=== PATIENT | female | born 1940 | race Caucasian/White ===

== ENCOUNTER 2023-11-06 10:13 | Outpatient (REF) | payer MEDICARE, SELFPAY ==
[2023-11-06 12:00] LABS: Vitamin B12 > 2000 pg/mL (200-900)
== END 2023-11-06 10:14 | disposition home or self-care (01) ==
LOC: HO.LAB 10:13
PROVIDERS: PCP Nurse Practitioner; Visit Provider Psychiatry & Neurology Neurology
DX: G20.C Parkinsonism, unspecified (principal)
CPT/HCPCS: 36415; 82607

== ENCOUNTER 2024-12-02 08:50 | Outpatient (AMB) | payer MEDICARE, SELFPAY ==
--- NOTE | 2024-12-02 09:16 | MHC.OFFVIS ---
Intake Visit Reasons: 6 Months Allergies Iodinated Contrast Media (Iodinated Contrast Media - IV Dye) Allergy (Unknown, Unverified 12/24/19 14:59) UNKNOWN Medication List - Last Reconciled 12/02/24 by Rivas Martin MD carbidopa-levodopa 25-100 mg 1 tab PO TID duloxetine 20 mg PO DAILY losartan 100 mg PO DAILY quetiapine 25 mg PO BEDTIME HPI Comments Details: 83 years old woman with clinical features suggestive of dementia with Lewy body disease and parkinsonism, and generalized body pain. She is present with no sginificant issue now but had problem with hallucinations. She has experienced visual hallucinations leading to significant distress, prompting inclusion of quetiapine at night in her medication plan. Since this adjustment, there have been no further hallucination episodes. The patient also has Parkinson's Disease controlled with carbidopa/levodopa three times daily, with variability in her symptom management observed. Additionally, she experiences challenges with her sleep patterns, identifying as not a morning person, impacting her daily routine. There are notable mood fluctuations, experiencing both positive and slightly more irritable or vergara periods. [facility] Medical History (Updated 12/02/24 @ 09:26 by Rivas Martin MD) Dyskinesia Fibromyalgia Dementia with Lewy bodies Review of Systems Const Details: - Neurological: Reports hallucinations; denies further episodes post medication adjustment. - Sleep: Reports difficulty with waking early. - Mood: Reports fluctuations between good and irritable moods. - Medications: Reports taking carbidopa/levodopa three times daily and quetiapine at night. Physical Exam Neuro Other: Mental Status: Alert and oriented to person, place, and time. Normal attention. Normal spontaneous speech, fluency, and comprehension. No obvious issues with mood and memory. Affect is appropriate. Cranial Nerves: CN II: Visual [place] full to confrontation, visual acuity intact. CN III, IV, : Pupils equal, round, reactive to light and accommodation. Extraocular movements are normal. CN V: Facial sensation is normal. CN VII: Facial movements symmetrical. CN VIII: Hearing intact to bedside conversation is normal. CN IX, X: Palate elevates symmetrically. CN XI: Shoulder shrug and head turn symmetrical. CN XII: Tongue midline without atrophy or fasciculations. Extrapyramidal: Full facial expressions and blinking. No rigidity. Movements are appropriate with no tremor or abnormality. Speech: Normal; no dysarthria or tremor. Assessment & Plan Assessment & Plan (1) Parkinsonism: Code(s): G20.C - Parkinsonism, unspecified Category: Medical Qualifiers: Parkinsonism type: unspecified Qualified Code(s): G20.C - Parkinsonism, unspecified Plan: During the visit, we discussed the patient's ongoing management plan, focusing on her hallucinations and Parkinson's Disease. The addition of quetiapine has prevented further hallucination episodes, and she is compliant with her carbidopa/levodopa regimen for Parkinson's. We addressed her mood fluctuations, supported by duloxetine and regular exercise, with acknowledgment of the associated challenges. Her sleep disturbances require monitoring. We reviewed the effectiveness of current therapies, agreeing to continue as currently prescribed, with follow-up scheduled as needed to reassess her regimen's adequacy and address any new concerns. (2) Fibromyalgia: Code(s): M79.7 - Fibromyalgia Category: Medical (3) Dementia with Lewy bodies: Code(s): G31.83 - Neurocognitive disorder with Lewy bodies; F02.80 - Dementia in other diseases classified elsewhere, unspecified severity, without behavioral disturbance, psychotic disturbance, mood disturbance, and anxiety Category: Medical Plan Impression: a: Moderate demetnia with Parkinsonism, probably from Lewy body type pathology b: Behvaioral symtposm from above c: Body pain better with Duloxetine Rec: a: Carbidopa/levodopa 25/100 TID b: Duloxetine 20mg one a day c: Quetiapine 25mg one at night Medications: New carbidopa-levodopa 25-100 mg 1 tab PO TID 270 tabs 1RF duloxetine 20 mg PO DAILY 90 caps 1RF quetiapine 25 mg PO BEDTIME 90 tabs 1RF Coding Level of Care Code Est Pt Level 5 (93839) Diagnoses Parkinsonism, unspecified Parkinsonism type G20.C Parkinsonism type: unspecified Fibromyalgia M79.7 Dementia with Lewy bodies G31.83; F02.80
--- OUTSIDE RECORDS SUMMARY | 2024-12-02 09:16 | XMS_ITS | Clinical Summary ---
Author Organization Patient Business Ser [facility] Address [address] [place] [address] Care Team Providers Care Radiographic Technologist Name Role Phone LgRebecca Primary Care Provider [phone] Allergies Active Allergy Reactions Criticality Noted Date Comments Iodinated Contrast Media 04/19/2005 ? Lisinopril Cough 01/02/2022 Medications aspirin 81 mg EC tablet 1 TABLET DAILY Active cholecalciferol (VITAMIN D-3) 25 mcg (1,000 unit) capsule Take 1,000 Units by mouth daily. Active cyanocobalamin (VITAMIN B-12) 1,000 mcg tablet Take 1,000 mcg by mouth daily. Active cycloSPORINE (Restasis MultiDose) 0.05 % drops INSTILL 1 DROP INTO BOTH EYES EVERY 12 HOURS 4 Active ijkzrwtu-jii-ttwr -FA-vit K-lut (Centrum Silver Women) 8 mg iron-400 mcg-50 mcg tablet Take by mouth daily. Active carbidopa-levodop a (SINEMET) 25-100 mg per tablet TAKE 1 TABLET BY MOUTH THREE TIMES A DAY FOR 90 DAYS 4 Active DULoxetine (CYMBALTA) [address] capsule Take 1 capsule (20 mg total) by mouth 1 (one) time each day. for 90 days 4 Active losartan (COZAAR) 100 mg tabletIndications :Essential hypertension Take 1 tablet (100 mg total) by mouth 1 (one) time each day. 90 each 1 5 Active Active Problems Problem Noted Date Diagnosed Date Dementia with parkinsonism (CMS/HCC V24, CMS/HCC V28) 11/12/2023 Overview (01/17/2024): Seen by Neurology in Started Sinemet Essential hypertension 01/02/2022 Osteopenia 02/08/2014 Chest pain 11/06/2010 Overview (01/17/2024): Had negative coronary cath 1996 [facility]- only had 30% LAD obstruction Pure hypercholesterolemia 10/31/2010 Encounters Date Type Department Care Team Description 10/08/2024 Telephone Internal Medicine - [facility] [address] [facility] [address] Rebecca Castanon DO from Last 3 Months Immunizations Name Administration Dates Next Due Influenza trivalent, 0.5mL, preservative free (Fluarix; FluLaval; Fluzone) ages 6mo and older (Afluria) 3 years and older 01/02/2009,01/07/2008,02/04/2007 Moderna SARS-CoV-2 COVID-19, mRNA, LNP-S, preservative free 04/13/2021,06/15/2020,05/18/2020 Pneumococcal conjugate 13 va lent (Prevnar 13, PCV13) 2mo and older 12/15/2015 Pneumococcal conjugate 20 va lent (Prevnar 20, PCV 20) 2mo and older 02/20/2023 Pneumococcal polysaccharide 23 valent (Pneumovax 23) 2yo and older 03/02/2008 Td Tetanus diptheria (Tdvax) 7yo and older 11/24,04/19/2005 Tdap Tetanus diptheria acell ular pertussis (Boostrix; Adacel) 7yo and older 09/15/2015 Surgical History Surgery Date Site/Laterality Comments COLONOSCOPY 12/11/2008 PROCEDURE: [place] COLONOSCOPY FLX DX W/COLLJ SPEC WHEN PFRMD; COMMENT: Normal Medical History Medical History Date Comments Esophageal reflux DX:Esophageal reflux Anxiety state, unspecified 04/08/2000 DX:An xiety state, unspecified; COMMENT: Quit job due to stress; has not worked since. Coronary atherosclerosis of unspecified type of vessel, citizen [place] or graft 04/19/2005 DX:Coronary atherosclerosis of unspecified type of vessel, citizen [place] or graft Special screening for malign ant neoplasms, colon 01/10/2009 DX:Special screening for mal ignant neoplasms, colon Chest pain 11/06/2010 DX:Chest pain Osteopenia 02/08/2014 DX:Osteopenia Benign paroxysmal vertigo of both ears DX:Benign paroxysmal vertigo of both ears Family History Medical History Relation Name Comments No Known Problems Brother 1 Diabetes Brother 2 Stroke Daughter Heart attack Father Other: Other Mother age 49 of blood clot Diabetes Sister x4 1 deceasaed No Known Problems Son Relation Name Status Comments Brother 1 Alive x2; HTN, DMII Brother 2 Daughter Alive Father (Age 74) MD - smoke r/emphysema Mother (Age 49) DVT - jasmina eled to heart Sister x4 1 deceasaed Alive x4; thyroid Son Alive Social History Tobacco Use Types Packs/Day Years Used Date Smoking Tobacco: Former Cigarettes Smokeless Tobacco: Never Tobacco Cessation:Counseling Given: Not Answered Alcohol Use Standard Drinks/Week Comments Yes 0 (1 standard drink = 0.6 oz pur e alcohol) Housing Instability Answer Date Recorde d Are you worried that in the next 2 months you may not have stable housing? No 02/27/2024 Food Access & Nutrition Answer Date Rec orded Do you have access to a vari ety of food including fruits and vegetables? Yes 02/27/2024 Access to Healthcare Answer Date Record ed Within the last 3 months, ho aristeo many times did you visit the emergency department for your medical care? 0 02/27/2024 Health Literacy Answer Date Recorded How often do you need to hav e someone help you when you read instructions, pamphlets, or other written material from your doctor or pharmacy? Rarely 02/27/2024 Caregiver: How often do you need to have someone help you when you read instructions, pamphlets, or other written material from your doctor or pharmacy? Not on file 02/27/2024 Financial Risk Answer Date Recorded How hard is it for you to pa y for the very basics like food, housing, medical care, and air conditioning / heating? Not very hard 02/27/2024 Transportation Answer Date Recorded Has the lack of transportati on kept you from meetings, work, or from getting things needed for daily living? No Has the lack of transportati on kept you from medical appointments or from getting medications? No 02/27/2024 Social Isolation Answer Date Recorded How often do you feel lonely or isolated from th ose around you? Never 02/27/2024 Food Risk Answer Date Recorded Within the past 12 months we worried whether our food would run out before we got money to buy more. Never true 02/27/2024 Within the past 12 months th e food we bought just didn't last and we didn't have money to get more. Never true 02/27/2024 Dependent Care Answer Date Recorded Do you need help finding or paying for care for your loved ones. For example, children teacher or elderly care for an older adult? No 02/27/2024 Education Answer Date Recorded Do you think completing more education or training, like finishing a GED, going to college, or learning a trade, would be helpful for you? No 02/27/2024 Employment and Income Answer Date Recor ded During the last four weeks, have you been actively looking for work? No 02/27/2024 Living Situation Answer Date Recorded What is your living situation? 1 04/28/2023 Comments No Sex and Gender Information Value Date Recorded Sex Assigned at Not on file Legal Sex Female 5:16 AM EST Gender Identity Not on file Sexual Orientation Not on file Obstetrics History Last Filed Vital Signs Vital Sign Reading Time Taken Comments Blood Pressure 126/63 07/14/2024 10:32 AM EDT Pulse 77 07/14/2024 10:32 AM EDT Temperature - - Respiratory Rate - - Oxygen Saturation - - Inhaled Oxygen Concentration - - Weight 60.3 kg (133 lb) 07/14/2024 10:32 AM EDT Height 154.9 cm (5' 1 ) 02/28/2024 8:38 AM EST Body Mass Index 25.13 02/28/2024 8:38 AM EST Plan of Treatment Upcoming Encounters Date Type Department Care Team (Late st Contact Info) Description 07/20/2025 9:00 AM EDT Office Visit Nephrology - [facility] [address] [facility] [place] [phone] Trav Villarreal MD [address] [id number] Health Maintenance Due Date Last Done Comments Zoster Vaccines (1 of 2) 1959 RSV Immunization Adult Patients (1 - 1-dose 75+ series) 2016 Osteoporosis Screening (Bone Density Screening) 03/18/2022 COVID-19 Vaccine ( - season) 2023 04/13/2021, 06/15/2020, 05/18/2020 Depression Screening 04/08/2024 02/27/2024, 12/20/19 23 Social Influencers of Health Screening 02/26/2025 02/27/2024 Falls Risk Assessment 02/27/2025 02/28/2024, 024 Medicare Annual Wellness Visit 02/27/2025 02/28/2024 Hypertension/CHF/CAD Annual BMP Blood Test 07/14/2025 07/14/2024, 02/28/2024, 08/28/2023, Additional history exists DTaP,Tdap,and Td Vaccines (4 - Td or Tdap) 09/14/2025 09/15/2015, 11/24/2013, 04/19/2005 Cholesterol Screening (Lipid Panel) 02/27/2029 02/28/2024, 02/20/2023 Influenza Vaccine Discontinued 01/02/2009, , 02/04/2007 Pneumococcal Vaccine: 50+ Years Completed 02/20/2023, 12/15/2015, 03/02/2008 HIB Vaccines Aged Out No longer eligi ble based on patient's age to complete this topic HPV Vaccines Aged Out No longer eligi ble based on patient's age to complete this topic Hepatitis A Vaccines Aged Out No long er eligible based on patient's age to complete this topic Hepatitis B Vaccines Aged Out No long er eligible based on patient's age to complete this topic IPV Vaccines Aged Out No longer eligi ble based on patient's age to complete this topic MMR Vaccines Aged Out No longer eligi ble based on patient's age to complete this topic Meningococcal ACWY Vaccine Aged Out N o longer eligible based on patient's age to complete this topic Meningococcal B Vaccine Aged Out No l onger eligible based on patient's age to complete this topic RSV Immunization Patients Under 20 months Aged Out No longer eligible based on patient's age to complete this topic Varicella Vaccines Aged Out No longer eligible based on patient's age to complete this topic Procedures Procedure Name Priority Date/Time Associated Diagnosis Comments BASIC METABOLIC PANEL Routine 07/14/2024 11:20 AM EDT Stage 3 chronic kidney disease, unspecified whether stage 3a or 3b CKD ([facility] V24, [facility] V28) LIPID PANEL WITH REFLEX TO DIRECT LDL Routine 02/28/2024 10:05 AM EST Screening cholesterol level FALLS RISK ASSESSMENT Routine 08/28/2023 DEPRESSION SCREENING Routine 12/19/2022 from Last 3 Months or Most Recently Relevant to Health Maintenance Results * (ABNORMAL) Basic metabolic panel (07/14/2024 11:20 AM EDT) Sodium 137 133 - 145 mmol/L LAB CHEMISTRY METHOD 07/14/2024 5:14 PM [facility] Potassium 5.2 3.5 - 5.5 mmol/L LAB CHEMISTRY METHOD 07/14/2024 5:14 PM [facility] Chloride 104 96 - 110 mmol/L LAB CHEMISTRY METHOD 07/14/2024 5:14 PM [facility] CO2 30 21 - 32 mmol/L LAB CHEMISTRY METHOD 07/14/2024 5:14 PM [facility] Anion Gap 3 3 - 11 LAB CHEMISTRY METHOD 07/14/2024 5:14 PM [facility] Glucose 85 70 - 100 mg/dL LAB CHEMISTRY METHOD 07/14/2024 5:14 PM [facility] BUN 28(H) 5 - 25 mg/dL LAB CHEMISTRY METHOD 07/14/2024 5:14 PM [facility] Creatinine 1.00 0.50 - 1.10 mg/dL LAB CHEMISTRY METHOD 07/14/2024 5:14 PM [facility] eGFR 56(L) >=60 mL/min/1. 73m2 LAB CHEMISTRY METHOD 07/14/2024 5:14 PM EDT [facility] Comment:Calculation based on the Chronic Kidney Disease Epidemiology Collaboration (CKD-EPI) equation refit without adjustment for race. BUN/Creatinine Ratio 28.0 LAB CHEMISTRY METHOD 07/14/2024 5:14 PM EDT [facility] Calcium 9.8 8.5 - 10.5 mg/dL LAB CHEMISTRY METHOD 07/14/2024 5:14 PM EDT [facility] Blood Venous blood specimen / Unknown Venipuncture / Unknown 07/14/2024 11:20 AM EDT 07/14/2024 11:20 AM EDT us Trav Villarreal MD LAB BLOOD ORDERABLES Final Res ult [facility] [address] [place] [address], * (ABNORMAL) Lipid panel with reflex to direct LDL (02/28/2024 10:05 AM EST) Cholesterol 192 0 - 200 mg/dL LAB CHEMISTRY METHOD 02/28/2024 1:22 PM [facility] Triglycerides 64 0 - 150 mg/dL LAB CHEMISTRY METHOD 02/28/2024 1:22 PM [facility] HDL 70 >=40 mg/dL LAB CHEMISTRY METHOD 02/28/2024 1:22 PM [facility] LDL Calculated 109(H) 0 - 100 mg/dL LAB CHEMISTRY METHOD 02/28/2024 1:22 PM [facility] VLDL Cholesterol Aden 12.8 mg/dL LAB CHEMISTRY METHOD 02/28/2024 1:22 PM [facility] Non HDL Chol. (LDL+VLDL) 122 <145 mg/dL LAB CHEMISTRY METHOD 02/28/2024 1:22 PM [facility] Chol/HDL Ratio 2.7 0.0 - 4.4 LAB CHEMISTRY METHOD 02/28/2024 1:22 PM EST [facility] Blood Venous blood specimen / Unknown Venipuncture / Unknown 02/28/2024 10:05 AM EST 02/28/2024 10:05 AM EST Spring Hennessy [employer] WORK THERAPIST LAB BLOOD ORDERABLES Final Resul t [facility] [address] [place] [address], * Falls Risk Assessment (08/28/2023) Falls Risk Assessment abstracted Historical Provider HEALTH MAINTENANCE Final Result * Depression Screening (12/19/2022) Depression Screening abstracted Historical Provider HEALTH MAINTENANCE Final Result from Last 3 Months or Most Recently Relevant to Health Maintenance Insurance MEDICARE [facility] Care Teams Radiographic Technologist Relationship Specialty Start Date End Date Rebecca Castanon DO [facility] [place] [address] PCP - General 10/29/22
--- OUTSIDE RECORDS SUMMARY | 2024-12-02 09:16 | XMS_ITS | Patient Health Record ---
Author Organization [facility] Address [address] [place] [address] Care Team Providers Care Ignition Specialist Name Role Phone Deepali Lomeli MD, Sera Primary Care Provider Unavailable Black, Mechelle Unavailable [phone] Reason For Referral No Information Medications Medication SIG (Take, Route, Frequency, Duration) Notes Start Date End Date Status oxyCODONE HCl Not-Ta chikis Ibuprofen 600 MG 1 tablet Orally 2; Duration: 30 day(s) 11/01/2014 Not-Taking Ibuprofen 600 MG 1 tablet Orally 2; Duration: 30 day(s) Not-Taking Ciclopirox Olamine 0.77% external Apply to effected areas twice a day; Duration: 30 days 01/06/2015 Not-Takin g Problems No Known Problems Plan Of Treatment Pending Test Test Name Order Date X ray : Foot, left 3V 12/08/2014 Insurance Providers Payer Name Payer Address Payer Phone Subscriber Number Group Number Insured Name Patient Relationship to Insured Coverage Start Date Coverage End Date [facility] [address] [place] [address] [id number] Suzie Lopez Self - patient is the insured [employer] [address] [place] [address] [id number] Suzie Lopez Self - patient is the insured Medical (General) History Medical History History ICD Code Cataracts Surgical History Surgery Date(Month/Year) HT/Tenotomy left 11/17/2014
== END 2024-12-02 09:51 | disposition home or self-care (01) ==
LOC: HO.HSM 08:50
PROVIDERS: PCP Internal Medicine; Referring Provider Internal Medicine; Visit Provider Psychiatry & Neurology Neurology
DX: G20.C Parkinsonism, unspecified (principal); M79.7 Fibromyalgia; G31.83 Neurocognitive disorder with Lewy bodies; F02.80 Dementia in other diseases classified elsewhere, unspecified severity, without behavioral disturbance, psychotic disturbance, mood disturbance, and anxiety
CPT/HCPCS: 99215

== ENCOUNTER → 2024-12-02 08:50 | Outpatient (BNVA) | payer MEDICARE, SELFPAY | PROVIDERS: PCP Internal Medicine; Referring Provider Internal Medicine; Visit Provider Psychiatry & Neurology Neurology | DX: G31.83 Neurocognitive disorder with Lewy bodies (principal); G20.C Parkinsonism, unspecified; M79.7 Fibromyalgia; F02.80 Dementia in other diseases classified elsewhere, unspecified severity, without behavioral disturbance, psychotic disturbance, mood disturbance, and anxiety | CPT/HCPCS: 99212 ==